=== PATIENT | female | born 2000 | race Caucasian/White ===

== ENCOUNTER 2024-12-27 06:57 | Inpatient (IN) | payer BC, SELFPAY ==
[2024-12-27] VITALS (14 sets, daily range): BP systolic 100–131; BP diastolic 58–86; PULSE 62–111; RESP 16–18; TEMP 36.6–37.6; O2SAT 94–98; BMI 31.6
[2024-12-27 07:31] LABS: Basophils Percent Auto 0.2 % (0.0-3.0); Eosinophils Percent Auto 3.9 % (0.0-7.0); Hematocrit 37.7 % (33.0-51.0); Immature Granulocytes Pct Auto 1.1 %; Lymphocytes Percent Auto 19.4 % (20-44); Mean Corpuscular HGB Conc 35 gm/dL (32-36); Mean Corpuscular Hemoglobin 30 pg (26-34); Mean Corpuscular Volume 88 fL (80-100); Neutrophils Percent Auto 69.4 % (42.0-72.0); Platelet Count* 291 K/uL (140-440); RDW Coefficient of Variation % 13.3 % (11.5-15.5); Red Blood Count 4.27 m/uL (4.00-5.20); White Blood Count* 13.06 K/uL (4.50-11.00)
[2024-12-27 07:33] LABS: Slide Review Reflex Yes
[2024-12-27 07:46] LABS: Slide Review Acceptable Review (Acceptable)
[2024-12-27] MEDS: OXYTOCIN 30 unit/500 ML in NS 30 UNIT/500 ML BAG 300 UNIT IVPB (08:01)
[2024-12-27] MEDS: LIDOCAINE 1 % PF 30 ML INJECTION (08:16)
[2024-12-27] MEDS: miSOPROStoL 800 MCG/4 TABLET PR (08:22)
--- NOTE | 2024-12-27 08:46 | PM.OBHPLI ---
OB - H&P: HPI Labor/Induction History of Present Illness Time Seen by Provider: 08:00 Date Seen: 12/27/24 Chief Complaint: The patient is a 24 year old 2 para 1 at 40 3/7 weeks gestation by LMP c/w 9wk US, who presents with contractions starting around 5am and escalating. Chief complaint: maternity : 2 Para: 1 Date of last menstrual period: 03/19/24 Estimated date of delivery: 12/24/24 Gestational age based on last menstrual period: 40 Narrative: Sophia Reeves is a 24 year old 2 para 1 at 40 3/7 weeks gestation by LMP c/w 9wk US, who presents with contractions starting around 5am and escalating. No LOF. In triage she was checked and was 4/90/0 station. She was admitted for active labor. related issues include: - circumvallate placenta - small head circumference, measuring 2 standard deviations below the mean. Does not meet definition for microcephaly as that is 3 standard deviations below the mean. - desires permanent sterilization. Had consult with [facility] Dr Yancey 10/24/24 History of Present Dating criteria: based on LMP care: good care Ultrasounds: normal 1st trimester US and abnormal US findings (EFW 10%, HC <2%, circumvallate placenta. MFM consulted. ) Medical complications: none Labs Blood type: O (+) positive Rubella: immune RPR/VDLR: nonreactive GBS status: negative HBsAG: negative Meds Home Medications and Allergies Home Medications ?Medication ?Instructions ?Recorded ?Confirmed ?Type vits no.126-ferrous fum tab PO .QD 10/24/24 10/24/24 History 28 mg iron-folic acid 800 mcg tablet (Classic ) Allergies Allergy/AdvReac Type Severity Reaction Status Date / Time amoxicillin Allergy Severe Rash Verified 12/27/24 07:20 sulfamethoxazole (From Allergy Severe Hives Verified 12/27/24 07:20 Bactrim) trimethoprim (From Bactrim) Allergy Severe Hives Verified 12/27/24 07:20 OB - H&P: Exam Physical Exam: Vital signs: Temp Pulse Resp BP 98 F 80 18 123/58 L 12/27/24 06:52 12/27/24 08:39 12/27/24 06:52 12/27/24 08:39 Constitutional: Constitutional: no acute distress and cooperative Routine HEENT Exam: Head: Present normal inspection Eye: Present normal appearance Routine Respiratory Exam: Respiratory: Present CTA bilaterally Routine Cardiovascular Exam: Cardiovascular: RRR Fetus B: heart rate baseline: 120 monitor accelerations: Present monitor decelerations: Variable terminal press operator variability: Moderate (11-25) OB - Results Labs Labs: Short CBC 12/27/24 Range/Units 07:05 WBC 13.06 H (4.50-11.00) K/uL Hgb 13.0 (12.0-16.0) gm/dL Hct 37.7 (33.0-51.0) % Plt Count 291 (140-440) K/uL OB - Problem Based A/P Additional Plan (1) Term : Status: Acute (2) Circumvallate placenta: Status: Acute Delivery/Labor/Induction Plan Plan: expectant management
--- NOTE | 2024-12-27 09:00 | W.PM.VAGDEL1 ---
Procedure Delivery date: 12/27/24 Procedure Done: Global Procedure Details: The patient is a 24 year-old admitted on 12/27/24 at 40 Weeks, 3 Days gestation for active labor.? Cervical exam on admission was 4 cm/90 % effaced/0 station with membranes intact in vertex presentation.? Contractions were every 2-4 minutes.? heart rate demonstrated baseline 10 bpm with moderate variability, + accelerations.?Patient went on to progress quickly and was up in room with RN doing the labor warm up position changes when patient suddenly felt head coming out. Pt delivered precipitously shortly thereafter with RN delivering baby with head en caul and SROM occurred as body came out per RN. SROM occurred at 0735 with clear fluid. No resuscitation was needed. ER doctor was called to delivery but RN delivered prior to ER doctors arrival. When I arrived, pt was sitting up in bed holding baby, placenta still in uterus with cord already clamped and cut. No significant bleeding noted. I instructed RN to start the routine IV pitocin. Active management placenta then started on my arrival. Placenta delivered at 0808 intact with 3VC and with classic circumvallate appearance. Pt used nitrous for comfort during placenta delivery and repair. ? Labor Analgesia:? nitrous ? Pitocin:? no ? Labor onset:? 0628 ? Complete:? 0732 ? Pushing:? pt pushed twice and baby delivered ? Delivery: 0736, see above ? Placenta delivered spontaneously and complete at 0808 with a 3 vessel cord. ? Mother and infant were stable after delivery. ? Lacerations:? superficial right periurethral hemostatic and not repaired. Right labial small abrasion, hemostatic and not repaired. 1st degree midline perineal, repaired after 1% lidocaine for anesthesia. 3-0 vicryl used to repair for hemostasis. Pt noted to have persistent trickle of bleeding despite fundal massage by RN with firm uterus. Rectal cyctotec given and resolved. ? Blood loss: 200 mL. Blood loss measurement type: EBL ? Sponge and needles counts are correct. Infant Gender: Female presentation: vertex Placental Delivery Description: Spontaneous Cord Description: 3 Vessels
--- NOTE | 2024-12-27 11:01 | P.OBCN_ITS ---
OB - CN: HPI Date of Consult Time Seen by Provider: 11:00 Date Seen: 12/27/24 Patient: Melony Patient Consult date: 12/27/24 Requesting Physician: Savannah Patino DO Primary Care Provider: Savannah Patino DO Consult Narrative Reason for consult: desires sterilization Narrative: The patient is a 24 year old G 2 P 2001 at 40 3/7 weeks gestation that was admitted to the Center on 12/27/24 for spontaneous labor. She proceeded to a precipitous spontaneous vaginal delivery of a viable female . The delivery was uncomplicated. The patient very much desires permanent sterilization. She had seen Dr. Yancey for consultation on 10/23/2024, and consent for bilateral salpingectomies had been obtained. History of Present complications comment: Circumvallate placenta Medical Complications: None History History 2 Elective abortions Para 2 Spontaneous abortions Hx # Term Pregnancies Ectopic pregnancies Hx # Pregnancies Multiple births Number of Living Children 2 Labs Blood type: O (+) positive Rubella: immune RPR/VDLR: nonreactive GBS status: negative HBsAG: negative OB Labs: Lab Assessment Start: 12/27/24 07:19 Freq: ONCE Status: Complete Protocol: PC.OBGBS Activity Type Activity Date Activity User E-sign Co-sign Detail Recorded Client Recorded Date Recorded By Document 12/27/24 07:55 ALEJANDRINATRENT [id number] 12/27/24 07:55 EMILY 12/27/24 07:55 Lab Assessment GBS Status negative GBS Additional Criteria None No Treatment Needed OK Are Labs Available Yes Maternal Blood Type O Maternal RH Factor Positive Evaluate Maternal Rubella Immune Status Immune Hepatitis B Surface Antigen Negative Maternal HIV Status Negative Maternal Syphillis (RPR) Status Negative [facility] Surgical History No history of previous surgery Social History What is your current living situation?: I presently have a place to live Problems where you live: no known problems In the past 12 months, utilities in danger of being shut off: no In past 12 months, lack of transportation kept you from medical appts, meetings, work, or getting things needed for daily living: no In the past 12 mos, have been you worried that your food would run out before you had money to buy more?: never true In the past 12 mos, the food you bought just didn't last and you didn't have money to buy more?: never true Smoking Status: Never smoker How often does anyone, including family, friends and others, physically hurt you : never How often does anyone, including family, friends and others, insult or talk down to you: never How often does anyone, including family, friends and others, threaten you with harm: never How often does anyone, including family, friends and others, scream or curse at you: never Meds Home Medications and Allergies Home Medications ?Medication ?Instructions ?Recorded ?Confirmed ?Type vits no.126-ferrous fum tab PO .QD 10/24/24 0 10/24/24 History 28 mg iron-folic acid 800 mcg tablet (Classic ) Allergies Allergy/AdvReac Type Severity Reaction Status Date / Time amoxicillin Allergy Severe Rash Verified 12/27/24 07:20 sulfamethoxazole (From Allergy Severe Hives Verified 12/27/24 07:20 Bactrim) trimethoprim (From Bactrim) Allergy Severe Hives Verified 12/27/24 07:20 OB - H&P: Exam Physical Exam: Vital signs: Temp Pulse Resp BP 98 F 85 18 121/77 12/27/24 06:52 12/27/24 10:08 12/27/24 06:52 12/27/24 10:08 Constitutional: Constitutional: no acute distress Routine HEENT Exam: Head: Present normal inspection Routine Respiratory Exam: Comments: Normal respiratory effort. Detailed Abdominal Exam: Comments: Soft, nontender. Routine Extremities Exam: Extremities: Present normal inspection OB - Results Labs Labs: Short CBC 12/27/24 Range/Units 07:05 WBC 13.06 H (4.50-11.00) K/uL Hgb 13.0 (12.0-16.0) gm/dL Hct 37.7 (33.0-51.0) % Plt Count 291 (140-440) K/uL OB - CN: A/P Assessment and Plan (1) Unwanted fertility: Status: Acute (2) Status post delivery at term: Status: Acute Plan I reviewed the patient's desire for permanent sterilization, and discussed the surgical procedure. She had no further questions, after having already signed the surgical consent with my partner. We will add her to the schedule for bilateral salpingectomies via infraumbilical mini-laparotomy tomorrow morning. We discussed postoperative pain management and activity restrictions.
[2024-12-27] MEDS: IBUPROFEN 600 MG TABLET PO (19:42)
[2024-12-27] MEDS: LACTATED RINGERS 1000 ML 1,000 ML 125 ML IV (23:37)
[2024-12-28] VITALS (16 sets, daily range): BP systolic 93–118; BP diastolic 59–76; PULSE 55–100; RESP 14–22; TEMP 36.4–37.1; O2SAT 91–97
[2024-12-28 06:58] LABS: Hemoglobin* 11.3 gm/dL (12.0-16.0)
[2024-12-28] MEDS: LACTATED RINGERS 1000 ML 1,000 ML 125 ML IV ×2 (07:39→10:17)
[2024-12-28] MEDS: LANOLIN CREAM 1 APPLIC TOPICAL (07:39)
--- NOTE | 2024-12-28 08:00 | P.OBPN_ITS ---
OB - PN:Subj Subjective Time Seen by Provider: 08:00 Date Seen: 12/28/24 Interval history: pt is seen in routine rounds this morning. No concerns. Is ambulating, voiding and tolerating po's. Is now NPO since midnight for salpingectomy later this morning. Pt reports bleeding decreasing. going well. Patient comments OB post-: no complaints and pain well controlled [place] status: doing well feeding status: exclusively OB - PN: Obj Exam Physical Exam: Vital signs: Temp Pulse Resp BP Pulse Ox O2 Del Method 98.8 F 100 18 118/73 93 Room Air 12/28/24 05:04 12/28/24 05:04 12/28/24 05:04 12/28/24 05:04 12/28/24 05:04 12/28/24 05:04 Constitutional: Constitutional: no acute distress and cooperative Routine HEENT Exam: Head: Present normal inspection Routine Abdominal Exam: Fundus: Present firm (below umbilicus) OB - PN: Obj Data Labs Labs: Laboratory Results - last 24 hr 12/27/24 12/28/24 07:05 06:35 Hgb 11.3 L Blood Type O Positive Antibody Screen NEGATIVE OB - PN: A/P Delivery Assessment and Plan (1) Unwanted fertility: Problem details: salpingectomy scheduled morning 12/28/24 Status: Acute (2) Status post delivery at term: Status: Acute Assessment and Plan: doing well, continue routine cares. May d/c later today after surgery recovery or my stay until tomorrow. Will see how day goes. Plan Plan: routine care
--- NOTE | 2024-12-28 09:48 | P.PCN_ITS ---
Procedure Note Date Seen: 12/28/24 Date of procedure: 12/28/24 Will [facility] bill your pro fee for this procedure?: Yes Pre-op diagnosis: 1. day #1. 2. Undesired fertility. Post-op diagnosis: same Procedure: bilateral salpingectomies. Procedure Description: Informed consent was obtained for bilateral salpingectomies. Patient was taken to the operating room with IV running. General endotracheal anesthesia was then obtained without difficulty. She was prepped and draped in the usual sterile fashion in the dorsal supine position. The infraumbilical area was infiltrated with a small amount of Marcaine. A transverse infraumbilical incision was made with a scalpel. This incision was carried down to the underlying layer of fascia with hemostat. The fascia was grasped with Matty clamps and entered sharply with [place] scissors. The peritoneum was identified, grasped with two Mary clamps, and sharply incised. The smallest Devendra retractor was inserted and tightened down. Patient was airplaned to her right side. The left tube was identified, elevated with [place] clamps and carried out to its fimbriated end. Beginning with the fimbriated edge, the mesosalpinx was cauterized and transected with the LigaSure device. This dissection was carried laterally to medially. The fallopian tube was divided near the cornua and sent to pathology. Hemostasis was confirmed. Patient was then airplaned to her left side. The right tube was identified, elevated and carried out to its fimbriated end. Beginning with the fimbriated edge, the mesosalpinx was cauterized and transected with the LigaSure device. This dissection was carried laterally to medially. The fallopian tube was divided near the cornua and sent to pathology. Hemostasis was confirmed. Patient was returned to neutral position. The retractor was removed. The peritoneal edge was oozing slightly, and hemostasis was obtained with electrocautery. The fascial edges were reapproximated with 0-Vicryl in a running fashion. Skin was closed with a subcuticular stitch of 4-0 Vicryl. Surgical glue was applied over the incision. Patient tolerated procedure well and was taken to recovery area in stable condition. A postsurgical debrief was performed which confirmed the procedure done, pathology specimens to be sent together, and EBL. Anesthesia: GETA Surgeon: Beulah Farrell MD Estimated blood loss (mL): 5 Pathology: specimen obtained, sent to pathology (bilateral fallopian tubes) Condition: stable Disposition: PACU
--- NOTE | 2024-12-28 10:07 | P.ANES_ITS ---
Anesthesia Charges Start Date/Time Anesthesia Start Date: 12/28/24 Anesthesia Start Time: 08:42 Stop Date/Time Anesthesia Stop Date: 12/28/24 Anesthesia Stop Time: 09:50 Coding CPT Codes CPT Codes: ANESTH TUBAL LIGATION - 53748 ([id number]) P2 - PATIENT W/MILD SYST DISEASE, QZ - PARANORMAL INVESTIGATOR SVC W/O PRESS OPERATOR MEAT BY
--- NOTE | 2024-12-28 10:07 | W.ANESCHARGE ---
Anesthesia Charges Start Date/Time Anesthesia Start Date: 12/28/24 Anesthesia Start Time: 08:42 Stop Date/Time Anesthesia Stop Date: 12/28/24 Anesthesia Stop Time: 09:50 Coding CPT Codes CPT Codes: ANESTH TUBAL LIGATION - 96582 ([id number]) P2 - PATIENT W/MILD SYST DISEASE, QZ - MEAL TEMPERER SVC W/O BENCH ASSEMBLER OPERATOR BY
--- NOTE | 2024-12-28 10:18 | SUR.PHASEI ---
pt lung sounds cparse/diminshed. OB aware. + productive cough. Pt d/c from PACU early per VENEER PRESS OPERATOR, AOx3, no pain and stable for return to unit.
--- NOTE | 2024-12-28 20:22 | PM.OBDSVD1 ---
DS: Providers Provider Time Seen by Provider: 08:00 Date Seen: 12/28/24 Date of admission: 12/27/24 06:57 Primary care physician: Savannah Patino DO Admitting Clinician: Savannah Patino DO Consults: Dr Farrell for salpingectomies Attending Physician on discharge: Savannah Patino DO Date of Discharge: 12/28/24 DS: Diagnosis Discharge Diagnosis (1) Status post delivery at term: Status: Acute Problem details: Precipitous 12/27/24 (2) Unwanted fertility: Status: Acute Problem details: Bilateral salpingectomies performed by Dr Farrell on 12/28/24 Exam Const: Vital Signs, click to edit/add: Vital Signs - 24 hr 12/27/24 23:18 12/28/24 05:04 12/28/24 09:47 Temperature 98.7 F 98.8 F 97.6 F Pulse Rate 56 L Pulse Rate [Pulse Oximeter] 102 H 100 Respiratory Rate 18 18 14 Blood Pressure 108/76 Blood Pressure [Le ft Arm] 100/67 118/73 Pulse Oximetry 98 93 91 Oxygen Delivery Me thod Room Air Room Air OxyMask Oxygen Flow Rate 6 12/28/24 09:50 12/28/24 09:55 12/28/24 10:00 Temperature 97.6 F Pulse Rate 55 L 59 L 58 L Pulse Rate [Pulse Oximeter] Respiratory Rate 19 19 22 Blood Pressure 108/66 101/64 99/60 Blood Pressure [Le ft Arm] Pulse Oximetry 94 93 92 Oxygen Delivery Me thod Oxygen Flow Rate 12/28/24 10:05 12/28/24 10:28 12/28/24 10:39 Temperature Pulse Rate 59 L 60 Pulse Rate [Pulse Oximeter] Respiratory Rate 19 19 Blood Pressure 106/72 93/63 Blood Pressure [Le ft Arm] Pulse Oximetry 93 94 96 Oxygen Delivery Me thod OxyMask OxyMask Oxygen Flow Rate 6 4 12/28/24 10:44 12/28/24 10:58 12/28/24 11:11 Temperature Pulse Rate 63 63 66 Pulse Rate [Pulse Oximeter] Respiratory Rate 19 16 16 Blood Pressure 103/66 99/63 98/63 Blood Pressure [Le ft Arm] Pulse Oximetry 96 96 97 Oxygen Delivery Me thod OxyMask OxyMask OxyMask Oxygen Flow Rate 3 2 1 12/28/24 11:44 12/28/24 12:13 12/28/24 13:19 Temperature Pulse Rate 63 73 82 Pulse Rate [Pulse Oximeter] Respiratory Rate 16 16 16 Blood Pressure 93/59 L 102/66 106/66 Blood Pressure [Le ft Arm] Pulse Oximetry 95 94 95 Oxygen Delivery Me thod Room Air Room Air Room Air Oxygen Flow Rate 0 0 12/28/24 15:05 12/28/24 18:17 Temperature 98.0 F Pulse Rate Pulse Rate [Pulse Oximeter] 75 Respiratory Rate 16 Blood Pressure Blood Pressure [Le ft Arm] 99/61 Pulse Oximetry 93 95 Oxygen Delivery Me thod Room Air Room Air Oxygen Flow Rate Documenting provider has reviewed patient's vital signs: yes Common normals: no apparent distress and healthy appearing General appearance: cooperative and comfortable : Uterus: U/1 and firm OB - DS: Summary Hospital Course Hospital Course: The patient is a 24 year old G 2 P 1 at 40 3/7 weeks gestation that was admitted to the Center on 12/27/24 for active labor. She had a precipitous vaginal delivery. She delivered a viable female . She is breast feeding. the patient has done well. She desired permanent sterilization and bilateral salpingectomies were performed the morning of 12/28/24. Pt was feeling well and desired discharge home later that evening. Peripartum Data delivery method: Vaginal Laceration description: Perineal - 1st Degree Procedures: Procedures Operation Date: 12/28/24 09:00 Actual Procedure Side Surgeon p Post Bilateral Salpingectomy Bilateral Beulah Farrell MD Procedures: tubal ligation/salpingectomy complications: none [place] Infant Gender: Female Discharge Plan: Home Time Spent with Patient Time attestation: Total time spent providing and/or coordinating discharge services: Discharge Plan Discharge Disposition: Home, Self-Care Date of Admission: 12/27/24 06:57 Primary Care Provider: Savannah Patino Condition: Stable Anticipated Discharge Date/Time: 12/28/24 20:39 Discharge Medications: New acetaminophen 500 mg Tablet 1,000 mg PO Q6H PRNQty: 30 0RF docusate sodium 100 mg Capsule 100 mg PO DAILY Qty: 30 0RF ibuprofen 600 mg Tablet 600 mg PO Q6H PRNQty: 30 0RF Continued Classic 28 mg iron- 800 mcg tablet 1 tab PO .QD Discharge Orders: Discharge Order (Routine); Ordered 12/28/24 Ordered By: Savannah Patino Patient Education: OB Vaginal/Breast Feeding Activity Detail: pelvic rest x 6 weeks Discharge Diet: Regular Follow Up Appointments: Savannah Patino DO [Primary Care Provider, Family Practice] Forms: MyHealth Info Instructions
[2024-12-30 15:06] LABS: Rapid Plasma Reagin (RPR) Non Reactive (Non Reactive)
== END 2024-12-28 21:43 | disposition home or self-care (01) | DRG 541 ==
LOC: OB OUT 06:57 → OB 17:52
PROVIDERS: Obstetrics & Gynecology; Admitting Provider Family Medicine; PCP Family Medicine; Visit Provider Family Medicine
PROC: 0UT70ZZ Resection of Bilateral Fallopian Tubes, Open Approach (ICD-10-PCS; CPT 58605; principal; 2024-12-28 09:00)
DX: O62.3 Precipitate labor (principal); O70.0 First degree perineal laceration during delivery; O43.113 Circumvallate placenta, third trimester; Z3A.40 40 weeks gestation of pregnancy; Z30.2 Encounter for sterilization; Z37.0 Single live birth
CPT/HCPCS: 00851; 36415; 85018; 85025; 86592; 86850; 86900; 86901; 88307; G0463; A9270; J0330; J1100; J1630; J1885; J2003; J2405; J2704; J3010; J3490; J7120